=== PATIENT | female | born 1950 ===

== ENCOUNTER 2020-01-07 05:50 | Day surgery (SDC) | payer OTHER ==
[~2020-01-07 05:50] MED LIST: ATORVASTATIN CA10 MG; CHILDREN'S ASPI81 MG; FORTAMET1000 MG; LANTUS SOL100 UNIT/1; LOSARTAN-HCTZ1 EAC2; SYNTHROID75 MCG; [UNRECOGNIZED DRUG - OTHER]
[2020-01-07] MEDS ORDERED: PERCOCET 5-3251 EACH PO (17:18)
[2020-01-07] MEDS ORDERED: DUI500 PO (17:18)
== END 2020-01-07 21:00 | disposition home or self-care (01) ==
LOC: CIR.AMB 05:50
PROVIDERS: ATTEND Orthopaedic Surgery
DX: S42.222A 2-part displaced fracture of surgical neck of left humerus, initial encounter for closed fracture (principal)
CPT/HCPCS: 23616; 20902; C1776